=== PATIENT | male | born 1940 | race Caucasian/White ===

== ENCOUNTER 2018-02-05 07:55 | Day surgery (SDC) | payer MEDICARE, BC ==
[~2018-02-05] VITALS: Ht 180.3 cm; Wt 88.5 kg
[~2018-02-05 07:55] MED LIST: TRAMADOL HCL50 MG PO
[2018-02-05] MEDS ORDERED: INVOKANA100 MG (09:12)
[2018-02-05] MEDS ORDERED: LEVEMIR100 UNIT/M (09:13)
[2018-02-05] MEDS ORDERED: HUMALOG100 UNIT/M SC (09:13)
[2018-02-05] MEDS ORDERED: VICTOZA18 MG/3 ML SC (09:13)
[2018-02-05] MEDS ORDERED: METFORMIN500 MG PO (09:14)
[2018-02-05] MEDS ORDERED: ASPIRIN81 MG PO (09:14)
[2018-02-05] MEDS ORDERED: LYRICA25 MG PO (09:14)
[2018-02-05] MEDS ORDERED: CYMBALTA30 MG PO (09:14)
[2018-02-05] MEDS ORDERED: EFFIENT10 MG PO (09:15)
[2018-02-05] MEDS ORDERED: METOPROLOL SUCC25 MG PO (09:15)
[2018-02-05] MEDS ORDERED: CRESTOR10 MG PO (09:15)
[2018-02-05] MEDS ORDERED: TAMSULOSIN HCL0.4 MG PO (09:15)
[2018-02-05] MEDS ORDERED: CELEBREX200 M1 (09:16)
[2018-02-05] MEDS ORDERED: ZOLPIDEM ER12.5 MG PO (09:16)
[2018-02-05] MEDS ORDERED: TEMAZEPAM15 MG PO (09:16)
[2018-02-05] MEDS ORDERED: NUVIGIL250 MG PO (09:16)
[2018-02-05] MEDS ORDERED: GLUCOSAMINE1500 MG PO (09:17)
[2018-02-05] MEDS ORDERED: PRILOSEC20 MG/CAP PO (09:17)
[2018-02-05] MEDS ORDERED: NITRO-DUR0.4 MG/HR TD (09:17)
[2018-02-05] MEDS ORDERED: FLAX SEED1000 MG PO (09:19)
[2018-02-05] MEDS ORDERED: VITAMIN D2000 UNI1 PO (09:20)
[2018-02-05] MEDS ORDERED: COQ1030 MG PO (09:20)
[2018-02-05] MEDS ORDERED: BENADRYL 25MG C25 MG PO (09:21)
[2018-02-05] MEDS ORDERED: MULTI VIT PO (09:21)
[2018-02-05] MEDS ORDERED: VITAMIN C1000 MG PO (09:21)
[2018-02-05] MEDS ORDERED: METAMUCIL28 % PO (09:21)
[2018-02-05] MEDS ORDERED: MAGNESIUM200 MG PO (09:21)
[2018-02-05] MEDS ORDERED: AFLIBERCEPT (09:22)
[2018-02-05 11:18] VITALS: BP 125/71
== END 2018-02-05 10:50 | disposition home or self-care (01) ==
LOC: ORM 07:55
PROVIDERS: ATTEND Anesthesiology Pain Medicine
PROC: 3E0U3BZ Introduction of Anesthetic Agent into Joints, Percutaneous Approach (ICD-10-PCS; principal; 2018-02-05)
PROC: 3E0U33Z Introduction of Anti-inflammatory into Joints, Percutaneous Approach (ICD-10-PCS; 2018-02-05)
DX: M70.61 Trochanteric bursitis, right hip (principal); M76.31 Iliotibial band syndrome, right leg

== ENCOUNTER 2018-03-12 05:48 | Day surgery (SDC) | payer MEDICARE, BC ==
[~2018-03-12] VITALS: Ht 180.3 cm; Wt 88.5 kg
[~2018-03-12 05:48] MED LIST changes: +AFLIBERCEPT SC; +ASPIRIN81 MG PO; +BENADRYL 25MG C25 MG PO; +CELEBREX200 M1 PO; +COQ1030 MG PO; +CRESTOR10 MG PO; +CYMBALTA30 MG PO; +EFFIENT10 MG PO; +FLAX SEED1000 MG PO; +GLUCOSAMINE1500 MG PO; +HUMALOG100 UNIT/M SC; +INVOKANA100 MG; +LEVEMIR100 UNIT/M SC; +LYRICA25 MG PO; +MAGNESIUM200 MG PO; +METAMUCIL28 % PO; +METFORMIN500 MG PO; +METOPROLOL SUCC25 MG PO; +MULTI VIT PO; +NITRO-DUR0.4 MG/HR TD; +NUVIGIL250 MG PO; +PRILOSEC20 MG/CAP PO; +TAMSULOSIN HCL0.4 MG PO; +TEMAZEPAM15 MG PO; +VICTOZA18 MG/3 ML SC; +VITAMIN C1000 MG PO; +VITAMIN D2000 UNI1 PO; +ZOLPIDEM ER12.5 MG PO
[2018-03-12 07:46] VITALS: BP 134/75
== END 2018-03-12 08:18 | disposition home or self-care (01) ==
LOC: ORM 05:48
PROVIDERS: ATTEND Anesthesiology Pain Medicine
PROC: 3E0U3BZ Introduction of Anesthetic Agent into Joints, Percutaneous Approach (ICD-10-PCS; principal; 2018-03-12)
PROC: 3E0U33Z Introduction of Anti-inflammatory into Joints, Percutaneous Approach (ICD-10-PCS; 2018-03-12)
DX: M70.61 Trochanteric bursitis, right hip (principal); M76.31 Iliotibial band syndrome, right leg

== ENCOUNTER 2018-04-09 05:49 | Day surgery (SDC) | payer MEDICARE, BC ==
[~2018-04-09 05:49] MED LIST changes: +LIDOCAINE51; +NITROGLYCERIN0.4 MG
[2018-04-09 11:59] VITALS: BP 131/73
== END 2018-04-09 07:43 | disposition home or self-care (01) ==
LOC: ORM 05:49
PROVIDERS: ATTEND Anesthesiology Pain Medicine
PROC: 3E0U33Z Introduction of Anti-inflammatory into Joints, Percutaneous Approach (ICD-10-PCS; principal; 2018-04-09)
PROC: 3E0U3BZ Introduction of Anesthetic Agent into Joints, Percutaneous Approach (ICD-10-PCS; 2018-04-09)
DX: M70.61 Trochanteric bursitis, right hip (principal); M76.31 Iliotibial band syndrome, right leg; M25.551 Pain in right hip

== ENCOUNTER 2018-04-30 06:33 | Day surgery (SDC) | payer MEDICARE, BC ==
[~2018-04-30 06:33] MED LIST changes: +HYDROCODONE/ACE1 TAB PO
[2018-04-30 08:31] VITALS: BP 125/65
== END 2018-04-30 08:50 | disposition home or self-care (01) ==
LOC: ORM 06:33
PROVIDERS: ATTEND Anesthesiology Pain Medicine
PROC: 3E0R33Z Introduction of Anti-inflammatory into Spinal Canal, Percutaneous Approach (ICD-10-PCS; principal; 2018-04-30)
PROC: B01B1ZZ Fluoroscopy of Spinal Cord using Low Osmolar Contrast (ICD-10-PCS; 2018-04-30)
DX: M54.17 Radiculopathy, lumbosacral region (principal); M79.604 Pain in right leg
CPT/HCPCS: Q9967

== ENCOUNTER 2018-05-14 06:05 | Day surgery (SDC) | payer MEDICARE, BC ==
[2018-05-14 07:43] VITALS: BP 113/61
== END 2018-05-14 07:54 | disposition home or self-care (01) ==
LOC: ORM 06:05
PROVIDERS: ATTEND Anesthesiology Pain Medicine
PROC: 3E0R33Z Introduction of Anti-inflammatory into Spinal Canal, Percutaneous Approach (ICD-10-PCS; principal; 2018-05-14)
PROC: B01B1ZZ Fluoroscopy of Spinal Cord using Low Osmolar Contrast (ICD-10-PCS; 2018-05-14)
DX: M54.17 Radiculopathy, lumbosacral region (principal)
CPT/HCPCS: Q9967

== ENCOUNTER 2018-06-11 05:45 | Day surgery (SDC) | payer MEDICARE, BC ==
[2018-06-11] MEDS ORDERED: REPATHA140 MG/ML IJ (06:30)
[2018-06-11] MEDS ORDERED: ELIQUIS5 MG PO (06:31)
[2018-06-11] MEDS ORDERED: FLAX SEED OIL1300 MG PO (06:32)
[2018-06-11 08:18] VITALS: BP 121/60
[2018-06-11] MEDS ORDERED: HYDROCODONE/ACE1 TAB PO (08:38)
== END 2018-06-11 08:40 | disposition home or self-care (01) ==
LOC: ORM 05:45
PROVIDERS: ATTEND Anesthesiology Pain Medicine
PROC: 3E0233Z Introduction of Anti-inflammatory into Muscle, Percutaneous Approach (ICD-10-PCS; principal; 2018-06-11)
PROC: 3E023BZ Introduction of Anesthetic Agent into Muscle, Percutaneous Approach (ICD-10-PCS; 2018-06-11)
PROC: B01B1ZZ Fluoroscopy of Spinal Cord using Low Osmolar Contrast (ICD-10-PCS; 2018-06-11)
DX: M54.17 Radiculopathy, lumbosacral region (principal); G57.01 Lesion of sciatic nerve, right lower limb
CPT/HCPCS: Q9967